=== PATIENT | female | born 1930 | race Caucasian/White ===

== ENCOUNTER 2016-12-04 09:12 | Observation (INO) | payer OTHER ==
--- NOTE | 2016-12-04 09:36 | CPEKG ---
Heart Rate: 65 RR Interval: 923 P-R Interval: 172 QRSD Interval: 116 QT Interval: 416 QTC Interval: 433 P [place]: 5 QRS [place]: 66 T Wave [place]: -21 EKG Severity - ABNORMAL ECG - EKG Impression: ATRIAL-PACED COMPLEXES EKG Impression: PROBABLE LEFT ATRIAL ABNORMALITY EKG Impression: NONSPECIFIC INTRAVENTRICULAR CONDUCTION DELAY EKG Impression: BORDERLINE ST DEPRESSION, ANTERIOR LEADS Electronically Signed By: Kay Mckeon 05-Dec-2016 16:30:31
[2016-12-04 10:34] LABS: ANION GAP 13 mEq/L (8-16); CARBON DIOXIDE 23 mEq/l (22-31); CHLORIDE 108 mEq/L (97-110); CREATININE 0.8 mg/dL (0.6-1.0); GLOMERULAR FILTRATION RATE > 60; GLUCOSE 109 mg/dL (70-100); POTASSIUM 3.9 mEq/L (3.5-5.2); SODIUM 144 mEq/L (134-144)
[2016-12-04 10:46] LABS: TROPONIN I < 0.012 ng/mL (0-0.034)
[2016-12-04 10:51] LABS: % IMMATURE GRANULYOCYTES 0.3 % (0.0-1.1); ABSOLUTE IMMATURE GRANULOCYTES 0.02 10^3/uL (0.00-0.10); ADD DIFF? NO; ADD MORPH? NO; ADD SCAN? NO; ATYPICAL LYMPHOCYTE FLAG 10 (0-99); FRAGMENT RBC FLAG 0 (0-99); HEMATOCRIT 41.2 % (38.0-47.0); LEFT SHIFT FLG 0 (0-99); LIPEMIA HEMOLYSIS FLAG 90 (0-99); MEAN CELL VOLUME 94.1 fL (81.5-99.8); MEAN PLATELET VOLUME 9.1 fL (8.7-11.7); PLATELET CLUMPS FLAG 0 (0-99); PLATELET COUNT 249 10^3/uL (150-400); RED BLOOD CELL COUNT 4.38 10^6/uL (4.18-5.33); RED CELL DISTRIBUTION WIDTH 13.1 % (11.5-15.2)
--- NOTE | 2016-12-04 11:44 | EDPHY ---
H & P Stated Complaint: l cp Time Seen by Provider: 12/04/16 11:37 HPI/ROS: CHIEF COMPLAINT: Chest pain. HISTORY OF PRESENT ILLNESS: The patient is an 85-year-old female who a history of pacemaker and ascending aortic aneurysm with repair who presents with chest achiness radiating to her left shoulder that began yesterday. Her left arm feels heavy and weak. It has been continuous since then and was worse this morning. She reports worsening fatigue and weakness over the last several days, although she does note that she has been fatigued and generally weak since her aneurysm repair. She also has a history of a stroke. She admits dry cough. No fever, chills, palpitations, vomiting, diarrhea, urinary complaints, headache, lightheadedness, rhinorrhea. Patient denies a known history of coronary artery disease. No history of pulmonary embolism or congestive heart failure. REVIEW OF SYSTEMS: Aside from elements discussed in the HPI, a comprehensive 10-point review of systems was reviewed and is negative. PAST MEDICAL HISTORY: Diabetes, hypercholesterolemia, hypertension, stable meningioma pulmonary nodules, TIA, scoliosis. SOCIAL HISTORY: Here with her [id number]. VITAL SIGNS: Reviewed by me GENERAL: Elderly, slightly overweight, pleasant, in no obvious distress. HEENT: Atraumatic. Eyes: No icterus, no injection. Mouth: moist mucous membranes. No erythema or lesions. Neck: supple with no adenopathy. LUNGS: Clear to auscultation bilaterally, no wheezes, rhonchi or rales. CARDIAC: Early systolic murmur. Regular rate and rhythm, no rubs or gallops. ABDOMEN: Soft, nontender, nondistended, bowel sounds normal. BACK: No CVA tenderness. EXTREMITIES: No trauma. No edema. Range of motion is normal throughout. NEURO: Alert and oriented, motor strength 5/5 in upper extremities. Sensation intact to light touch throughout. Cranial nerves 2-12 are intact. SKIN: Warm and dry, no rash. PSYCHIATRIC: Normal mentation, no agitation. Portions of this note were transcribed by a medical biller. I personally performed a history, physical exam, medical decision making, and confirmed accuracy of information the transcribed note. Source: Patient Exam Limitations: No limitations - Personal History Current Tetanus/Diphtheria Vaccine: Yes - Medical/Surgical History Hx Asthma: No Hx Chronic Respiratory Disease: No Hx Diabetes: No Hx Cardiac Disease: Yes Hx Renal Disease: No Hx Cirrhosis: No Hx Alcoholism: No Hx HIV/AIDS: No Hx Splenectomy or Spleen Trauma: No Other PMH: AAA w/ repair, HTN; coli; hemorids removed; pacemaker placement - Social History Smoking Status: Never smoked Constitutional: Initial Vital Signs Temperature (C) 36.7 C 12/04/16 09:21 Heart Rate 75 12/04/16 09:21 Respiratory Rate 18 12/04/16 09:21 Blood Pressure 159/104 H 12/04/16 09:21 O2 Sat (%) 94 12/04/16 09:21 O2 Delivery Mode Room Air Allergies/Adverse Reactions: No Known Allergies Allergy (Verified 12/04/16 09:20) Home Medications: Medication Instructions Recorded Aspirin [Aspirin 81mg (*)] 81 mg PO DAILY 03/06/14 Atorvastatin Calcium [Lipitor 10 10 mg PO DAILY 03/06/14 mg (*)] Cholecalciferol Vit D3 [Vitamin D3 1,000 units PO DAILY 03/06/14 (*)] Herbals/Supplements -Info Only 1 tab PO DAILY 03/06/14 [place]-3 Fatty Acids [Fish Oil 1000 1,000 mg PO DAILY18 12/04/16 mg (*)] amLODIPine BESYLATE [Norvasc 5 mg 5 mg PO DAILY 12/04/16 (*)] Medical Decision Making - Diagnostics EKG Interpretation: 12-LEAD EKG: Please see the full report in [facility] Master. My interpretation: Atrial paced complexes Imaging: X-ray chest was obtained. I viewed the images myself on the PACS system. My interpretation of the images is: no acute process. The radiologist interpretation is: no acute abnormality. I discussed the x-ray findings with the patient. ED Course/Re-evaluation: An IV was established and labs ordered. Chest x-ray and EKG obtained. No acute abnormalities in the patient's lab work. EKG is nonischemic. Given patient's age and past medical history including diabetes, hypertension, and hypercholesterolemia, feel patient should be admitted to the hospital for further cardiac evaluation. At this time I do not believe the patient needs evaluation for her history of an ascending aortic aneurysm. The patient will be admitted to Dr. Valdes's service patient was evaluated by TRENTON Lopes, in the emergency department. Differential Diagnosis: After history and physical examination, the differential for chest pain was considered, including but not limited to, myocardial ischemia, acute coronary syndrome, pulmonary embolus, chest wall pain, pleural inflammation and pulmonary infectious causes. - Data Points Laboratory Results: Laboratory Results 12/04/16 09:30 12/04/16 09:30 12/04/16 12/04/16 09:30 09:30 WBC 6.37 10^3/uL 10^3/uL (3.80-9.50) RBC 4.38 10^6/uL 10^6/uL (4.18-5.33) Hgb 14.0 g/dL g/dL (12.6-16.3) Hct 41.2 % % (38.0-47.0) MCV 94.1 fL fL (81.5-99.8) MCH 32.0 pg pg (27.9-34.1) MCHC 34.0 g/dL g/dL (32.4-36.7) RDW 13.1 % % (11.5-15.2) Plt Count 249 10^3/uL 10^3/uL (150-400) MPV 9.1 fL fL (8.7-11.7) Neut % (Auto) 63.1 % % (39.3-74.2) Lymph % (Auto) 25.4 % % (15.0-45.0) [place] % (Auto) 9.7 % % (4.5-13.0) Eos % (Auto) 0.9 % % (0.6-7.6) Baso % (Auto) 0.6 % % (0.3-1.7) Nucleat RBC Rel Count 0.0 % % (0.0-0.2) Absolute Neuts (auto) 4.01 10^3/uL 10^3/uL (1.70-6.50) Absolute Lymphs (auto) 1.62 10^3/uL 10^3/uL (1.00-3.00) Absolute Monos (auto) 0.62 10^3/uL 10^3/uL (0.30-0.80) Absolute Eos (auto) 0.06 10^3/uL 10^3/uL (0.03-0.40) Absolute Basos (auto) 0.04 10^3/uL 10^3/uL (0.02-0.10) Absolute Nucleated RBC 0.00 10^3/uL 10^3/uL (0-0.01) Immature Gran % 0.3 % % (0.0-1.1) Immature Gran # 0.02 10^3/uL 10^3/uL (0.00-0.10) Sodium 144 mEq/L mEq/L (134-144) Potassium 3.9 mEq/L mEq/L (3.5-5.2) Chloride 108 mEq/L mEq/L (97-110) Carbon Dioxide 23 mEq/l mEq/l (22-31) Anion Gap 13 mEq/L mEq/L (8-16) BUN 11 mg/dL mg/dL (7-23) Creatinine 0.8 mg/dL mg/dL (0.6-1.0) Estimated GFR > 60 Glucose 109 mg/dL H mg/dL (70-100) Calcium 10.0 mg/dL mg/dL (8.5-10.4) Troponin I < 0.012 ng/mL ng/mL (0-0.034) Departure - Departure Disposition: [facility] Inpatient Acute Clinical Impression: Chest pain Qualifiers: Chest pain type: unspecified Qualified Code(s): R07.9 - Chest pain, unspecified Condition: Fair Report Scribed for: Kay Mckeon Report Scribed by: Mateo Presley Date of Report: 12/04/16 Time of Report: 11:44
[2016-12-04] MEDS ORDERED: LORazepam 0.5 MG TAB PO PRN (13:47)
[2016-12-04] MEDS ORDERED: ONDANSETRON 4 MG/2 ML VIAL IVP PRN (13:47)
[2016-12-04] MEDS ORDERED: ONDANSETRON DISINTEGRATING 4 MG TAB PO PRN (13:47)
[2016-12-04] MEDS ORDERED: ACETAMINOPHEN 325 MG TAB PO PRN (13:47)
[2016-12-04] MEDS ORDERED: diphenhydrAMINE 25 MG CAP PO PRN (13:47)
--- NOTE | 2016-12-04 14:43 | GHP ---
DATE OF ADMISSION: 12/04/2016 REASON FOR ADMISSION: Chest pain. HISTORY OF PRESENT ILLNESS: The patient is an 85-year-old female, who had profound fatigue yesterda y, she states she had some intermittent and building left sided chest pain/pressure, which radiated to her left shoulder and left arm. She had intermittent symptoms last night that began to scare her . Her symptoms persisted this morning and she eventually came to the ER for further evaluation. Sh jax denies shortness of breath. She denies nausea or vomiting. She denies any diaphoresis. She feel s her weakness is a little less profound now than it was yesterday. She has had some waxing and wan ing weakness over the past several weeks to months, and some complex symptoms, historically dating b ack multiple years. She has no sense of rhythm irregularity. No other gross acute GI distress. No recent change in leg swelling or edema. Stress level remains to be moderately elevated. PAST MEDICAL HISTORY: Hypertension, sick sinus syndrome, now with dual chamber pacemaker. 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 ALLERGIES: Lisinopril causes a cough. REGULAR MEDICATIONS: Vitamin D 2000 IU daily, fish oil 1 capsule daily, Co-Q10 100 mg daily, Norvas c 5 mg daily, Lipitor 10 mg 3 days per week, aspirin 81 mg daily. SURGICAL HISTORY: Hemorrhoidectomy in 1978, cholecystectomy in 1984, aortic aneurysm repair, upper chest, Dr. Husain, with Dacron sheath 2007, repair of hematoma from an aforementioned surgery , same year hospitalization surgery, TIA hospitalization 2012. SOCIAL HISTORY: Nonsmoker, does not consume alcohol on a regular basis. She has good support from her son and [id number], who live locally. FAMILY HISTORY: Father suffered from high blood pressure and gout. Son at age 50, aneurys m in head. Mother lived to her 80s, had heart disease, heart failure, hypertension. She has a sibl ing with gout, another one who from heart disease. Reported aneurysm in a sibling at age 53. SUCCESSFUL PREGNANCIES: One. REVIEW OF SYSTEMS: GENERAL: No fever, aches or chills. She does admit to profound weakness. HEAD : Intermittent headache, nothing acute or unusual. No acute visual changes. No changes with heari ng or any of her sensory modalities. No difficulty with speech. No acute neck pain or suddenly red uced range of motion. She denies cough, wheeze, shortness of breath or any difficulty breathing. C hest: See HPI. GI: See HPI. She has had some battles with constipation, but these are well managed. UR INARY: No acute symptoms. MUSCULOSKELETAL: Radiating pain to left shoulder and left arm. Otherwise, no acute findings. Chronic low back pain is otherwise stable. PHYSICAL EXAM: VITAL SIGNS: Blood pressure ranging from 127/84, to a maximum of 159/104, saturatio n 97% on room air. Temperature 37.4, heart rate 60s to 70s. This appears to be sinus rhythm. She has a dual-chamber pacemaker, but does not appear to be currently active given her current rhythm. GENERAL: Comfortable female, no evidence of recent trauma. Good color, alert. [id number] is p resent. HEENT: Symmetric pupils. Oropharynx mildly dry. NECK: Without masses. No lymphadenopathy. No carotid bruits. Neck range of motion is reasonable for age . LUNGS: No crackles, wheeze or congestion. Normal diaphragmatic excursion. HEART: Regular rate and rhythm, 1-2/6 systolic murmur. Stable fin ding. EKG sinus rhythm, without evidence of AV pacer activity currently. No clear ST-segment eleva tion or depression. ABDOMEN: Positive bowel sounds, obese, soft, nontender, nondistended. No guar ding, rebound or masses. SKIN: Warm, dry, intact. No evidence of ecchymosis or diaphoresis. JEAN MARIE [facility] AND PELVIC: Deferred. Joints without acute erythema, warmth or swelling. No tenderness about h er shoulder on gentle palpation. LABORATORY DATA: Initial blood work: CBC is unremarkable. Initial troponin is less than 0.012. Electrolytes are balanced, glucose 109. ASSESSMENT: 1. Chest pain. She has a fairly convincing anginal story with profound fatigue yesterday, chest pr essure/heaviness with radiation of pain to her left shoulder and left arm last night, and more so th is morning. We will admit. We will follow serial enzymes. We will check EKGs at 6 and in the morn ing. We will check an echocardiogram given her prior heart surgery, her murmur and we will obtain c ardiology consultation with Dr. Middleton or his group. She has admitted strong reservations against a stress test due to feeling weak after her last one for several days. She may need to consider pr oceeding to angiogram based on her predilection/fear of the stress test itself. 2. Hypertension. Follow numbers closely. We will await for reconciliation of medicine. She may n eed to resume a low dose of carvedilol for cardio activity. 3. Low back pain. Stable. 4. Chronic constipation, stable. 5. Diabetes, most recent A1c is hovering around 6.0. We will continue with diet and exercise manag chris. /[id number]/MODL
[2016-12-04 18:54] LABS: TROPONIN I < 0.012 ng/mL (0-0.034)
[2016-12-04 19:17] LABS: CREATINE KINASE-MB FRACTION 3.51 ng/mL (0-3.19)
[2016-12-04 19:25] LABS: CK-MB INTERPRETATION NEGATIVE (NEGATIVE)
[2016-12-05 05:37] LABS: ALANINE AMINOTRANSFERASE 39 IU/L (9-52); ALBUMIN 3.3 g/dL (3.5-5.0); ALKALINE PHOSPHATASE 53 IU/L (38-126); ANION GAP 9 mEq/L (8-16); ASPARTATE AMINOTRANSFERASE 29 IU/L (14-46); BILIRUBIN,TOTAL 1.2 mg/dL (0.1-1.4); CALCIUM 9.3 mg/dL (8.5-10.4); CARBON DIOXIDE 25 mEq/l (22-31); CHLORIDE 108 mEq/L (97-110); CREATININE 0.8 mg/dL (0.6-1.0); GLOMERULAR FILTRATION RATE > 60; GLUCOSE 89 mg/dL (70-100); POTASSIUM 4.1 mEq/L (3.5-5.2); SODIUM 142 mEq/L (134-144); TOTAL PROTEIN 6.1 g/dL (6.3-8.2)
[2016-12-05 05:47] LABS: TROPONIN I < 0.012 ng/mL (0-0.034)
[2016-12-05 05:50] LABS: CREATINE KINASE-MB FRACTION 3.32 ng/mL (0-3.19)
[2016-12-05 06:01] LABS: CK-MB INTERPRETATION NEGATIVE (NEGATIVE)
[2016-12-05] MEDS ORDERED: CARVEDILOL 3.125 MG TAB PO SCH (08:00)
[2016-12-05] MEDS: ATORVASTATIN CALCIUM 10 MG TAB PO SCH (08:13)
[2016-12-05] MEDS: CHOLECALCIFEROL VIT D3 1,000 UNITS TAB PO SCH (08:13)
[2016-12-05] MEDS: amLODIPine BESYLATE 5 MG TAB PO SCH (08:13)
[2016-12-05] MEDS: ASPIRIN 81 MG CHEWABLE TAB PO SCH (08:13)
--- NOTE | 2016-12-05 08:28 | SOAPPROG ---
[facility] Progress Note Assessment/Plan: Assessment: Plan: 12/05/16 08:26 CP--good story for angina with profound fatigue, then chest pressure and chest pain radiating to left shoulder and arm yesterday. Known mild DM2, HTN and high cholesterol. Patient may likely refuse a stress test, she may be more amenable to an angiogram. Breakfast being held. Cardiology consult pending. HTN--reasonable control DM--nursing home control has been excellent with A1C's around 6.0 Subjective: The patient feels ok. Some pressure when she lies down. Echo just performed. No new symptoms, awaiting cardiology input. She would prefer angiogram over stress test due to prior negative experience with stress tests. Objective: Vital Signs Temp Pulse Resp BP Pulse Ox 36.3 C 65 20 125/67 H 97 12/05/16 03:50 12/05/16 03:50 12/05/16 03:50 12/05/16 03:50 12/05/16 03:50 Laboratory Results 12/05/16 04:37 12/04/16 12/05/16 12/06/16 05:59 05:59 05:59 Intake Total 350 Output Total 300 Balance 50 Gen: NAD, bright, good color Lungs: CTAB Heart: RRR 2/6 DREW stabel Echo pending--poss LV wall motion abnormalities Abd +bs soft LE's no edema BP ok patient refused adding coreg Troponin neg x3 AM ekg pending ICD10 Worksheet Patient Problems: Problems Problem Status Onset Chest pain Acute Sick sinus syndrome Acute
--- NOTE | 2016-12-05 08:41 | CPEKG ---
Heart Rate: 68 RR Interval: 882 P-R Interval: 264 QRSD Interval: 108 QT Interval: 412 QTC Interval: 439 P [place]: -12 QRS [place]: 73 T Wave [place]: -4 EKG Severity - ABNORMAL ECG - EKG Impression: SINUS RHYTHM EKG Impression: FIRST DEGREE AV BLOCK EKG Impression: PROBABLE LEFT ATRIAL ABNORMALITY Electronically Signed By: Kay Mckeon 05-Dec-2016 16:27:57
[2016-12-05] MEDS ORDERED: ENOXAPARIN 30 MG/0.3 ML SYR SC SCH (09:00)
[2016-12-05] MEDS ORDERED: Herbals/Supplements -Info Only PO SCH (09:00)
--- NOTE | 2016-12-05 09:20 | PDCARCONS ---
Cardiology Consult Reason for Consult: chest pain, history of coronary disease Chief Complaint: left-sided chest discomfort that radiated into her left arm and shoulder, dizziness, weakness Requesting Physician: Dr. Valdes History of Present Illness: HPI: Sharon is an 85 year old female with a history of coronary artery disease via cardiac catheterization performed in 2006 (non-flow limiting coronary artery disease as of this time), ascending aortic aneurysm s/p repair in October 2007, dyslipidemia, hypertension, DM II and peripheral vascular disease. She presented to the emergency department yesterday with left-sided, resting chest discomfort that radiated into her left arm consistent with CCS IV angina. She denies shortness of breath, palpitations or other cardiac symptoms during this episode. She is feeling better today, although she reports she is feeling "weak." Troponin's were negative x 3. Plan/Assessment: I discussed the risk/benefit of cardiac catheterization vs. nuclear stress test for objective assessment of the patient's coronary circulation given her history of coronary disease, chest pain and abnormal resting EKG. She would like to proceed with a more aggressive invasive approach (specifically, she has refused a nuclear stress test). I have explained the risks, expected benefits and potential complications of this course of action with the patient and she wishes to proceed as planned. Some potential benefits include angina relief, definitive assessment of coronary anatomy and LV function. Complications have been described as , permanent and disabling stroke, heart attack, abnormal heart rhythm, bleeding and damage to blood vessels resulting in tissue or limb loss. The patient is npo as of this morning. History Information - Allergies/Home Medication List Allergies/Adverse Reactions: No Known Allergies Allergy (Verified 12/04/16 09:20) Home Medications: Aspirin [Aspirin 81mg (*)] 81 mg PO DAILY 03/06/14 [Last Taken 12/04/16] Atorvastatin Calcium [Lipitor 10 mg (*)] 10 mg PO DAILY 03/06/14 [Last Taken 12/16] Cholecalciferol Vit D3 [Vitamin D3 (*)] 1,000 units PO DAILY 03/06/14 [Last Taken 12/04/16] Herbals/Supplements -Info Only 1 tab PO DAILY 03/06/14 [Last Taken 03/05/14 18: 00] [place]-3 Fatty Acids [Fish Oil 1000 mg (*)] 1,000 mg PO DAILY18 12/04/16 [Last Taken 12/03/16] amLODIPine BESYLATE [Norvasc 5 mg (*)] 5 mg PO DAILY 12/04/16 [Last Taken ] I have personally reviewed and updated: family history, medical history, social history, surgical history - Past Medical History coronary artery disease, diabetes type 2, hypertension, hyperlipidemia, peripheral artery disease - Family History Positive for: CAD - Social History Smoking Status: Never smoked Cardiac History - Cardiac History Past Cardiac History: CAD, OTHER Cardiac Risk Factors: hypertension (>140/90), lipidemia, diabetes mellitus, family history of premature CAD, age > 65 Timing/Duration: Days Severity: moderate Severity Scale: 5 Location: substernal Activities at Onset: rest ISABEL Risk Evaluation age greater or equal to 65: yes greater or equal to 3 CAD risk factors: yes known CAD(stenosis greater or eqaul to 50%): no ASA use in past 7 days: yes severe angina(greater or equal to 2 episodes in 24hrs): no EKG ST changes greater or equal to 0.5mm: no positive cardiac marker: no Total Score: 3 ISABEL Score: 13.2% risk Physical Exam Temp Pulse Resp BP Pulse Ox 36.5 C 78 18 126/80 H 91 L 12/05/16 08:29 12/05/16 08:29 12/05/16 08:29 12/05/16 08:29 12/05/16 08:29 Constitutional: no apparent distress Eyes: anicteric sclera Cardiovascular: regular rate and rhythym, systolic murmur Gastrointestinal: normoactive bowel sounds Skin: warm, normal color Musculoskeletal: full muscle strength Psychiatric: interacting appropriately, not anxious Lymph, Heme, Immunologic: no cervical LAD Lab and Imaging 12/04/16 09:30 12/05/16 04:37 WBC 6.37 10^3/uL (3.80-9.50) 12/04/16 09:30 RBC 4.38 10^6/uL (4.18-5.33) 12/04/16 09:30 Hgb 14.0 g/dL (12.6-16.3) 12/04/16 09:30 Hct 41.2 % (38.0-47.0) 12/04/16 09:30 MCV 94.1 fL (81.5-99.8) 12/04/16 09:30 MCH 32.0 pg (27.9-34.1) 12/04/16 09:30 MCHC 34.0 g/dL (32.4-36.7) 12/04/16 09:30 RDW 13.1 % (11.5-15.2) 12/04/16 09:30 Plt Count 249 10^3/uL (150-400) 12/04/16 09:30 MPV 9.1 fL (8.7-11.7) 12/04/16 09:30 Neut % (Auto) 63.1 % (39.3-74.2) 12/04/16 09:30 Lymph % (Auto) 25.4 % (15.0-45.0) 12/04/16 09:30 [place] % (Auto) 9.7 % (4.5-13.0) 12/04/16 09:30 Eos % (Auto) 0.9 % (0.6-7.6) 12/04/16 09:30 Baso % (Auto) 0.6 % (0.3-1.7) 12/04/16 09:30 Nucleat RBC Rel Count 0.0 % (0.0-0.2) 12/04/16 09:30 Absolute Neuts (auto) 4.01 10^3/uL (1.70-6.50) 12/04/16 09:30 Absolute Lymphs (auto) 1.62 10^3/uL (1.00-3.00) 12/04/16 09:30 Absolute Monos (auto) 0.62 10^3/uL (0.30-0.80) 12/04/16 09:30 Absolute Eos (auto) 0.06 10^3/uL (0.03-0.40) 12/04/16 09:30 Absolute Basos (auto) 0.04 10^3/uL (0.02-0.10) 12/04/16 09:30 Absolute Nucleated RBC 0.00 10^3/uL (0-0.01) 12/04/16 09:30 Immature Gran % 0.3 % (0.0-1.1) 12/04/16 09:30 Immature Gran # 0.02 10^3/uL (0.00-0.10) 12/04/16 09:30 Sodium 142 mEq/L (134-144) 12/05/16 04:37 Potassium 4.1 mEq/L (3.5-5.2) 12/05/16 04:37 Chloride 108 mEq/L (97-110) 12/05/16 04:37 Carbon Dioxide 25 mEq/l (22-31) 12/05/16 04:37 Anion Gap 9 mEq/L (8-16) 12/05/16 04:37 BUN 15 mg/dL (7-23) 12/05/16 04:37 Creatinine 0.8 mg/dL (0.6-1.0) 12/05/16 04:37 Estimated GFR > 60 12/05/16 04:37 Glucose 89 mg/dL (70-100) 12/05/16 04:37 Calcium 9.3 mg/dL (8.5-10.4) 12/05/16 04:37 Magnesium 2.0 mg/dL (1.6-2.3) 12/05/16 04:37 Total Bilirubin 1.2 mg/dL (0.1-1.4) 12/05/16 04:37 AST 29 IU/L (14-46) 12/05/16 04:37 ALT 39 IU/L (9-52) 12/05/16 04:37 Alkaline Phosphatase 53 IU/L (38-126) 12/05/16 04:37 Creatine Kinase 173 IU/L (0-156) H 12/05/16 04:37 CK-MB (CK-2) Fraction 3.32 ng/mL (0-3.19) H 12/05/16 04:37 CK-MB (CK-2) % 1.9 % (0.0-4.0) 12/05/16 04:37 Creatine Kinase Interp NEGATIVE (NEGATIVE) 12/05/16 04:37 Troponin I < 0.012 ng/mL (0-0.034) 12/05/16 04:37 Total Protein 6.1 g/dL (6.3-8.2) L 12/05/16 04:37 Albumin 3.3 g/dL (3.5-5.0) L 12/05/16 04:37 EKG Interpretation: Positive for: normal sinsus rhythm, other (non-specific ST T wave abnormalities, non-specific IVCD, 0.[address] depression v3 v4 v5, abnormal EKG)
--- NOTE | 2016-12-05 11:19 | ECHO ---
[id number] + + [address] : : [place] [address] : : [phone] + + Adult Echocardiographic Report + -----+ :Name: Markel VENTURAkarrie Date: 12/05/2016 08:22 AM : : Hospital Admission Number: [id number] Location : 212: :: 1930 Gender: Female Height: 66 in : :Age: 85 yrs Race: WH,White Weight: 190 lb : :Reason For Study: Eval LV Fx : : BSA: 2.0 meters2 : :History: Chest Pain, History of ascending aortic arch : :aneurysm repair graft. Pacemaker : + -----+ MMode/2D Measurements \T\ Calculations IVSd: 1.4 cm LVIDd: 3.3 cm FS: 22.4 % Ao root diam: LVPWd: 1.1 cm LVIDs: 2.6 cm EDV(Teich): 44.1 ml3.5 cm ESV(Teich): 23.7 mlACS: 1.5 cm EF(Teich): 46.3 % LVOT diam: 2.1 cm LVLd ap4: 6.4 cm SV(MOD-sp4): LVOT area: EDV(MOD-sp4): 18.0 ml 3.5 cm2 42.0 ml LVLs ap4: 6.4 cm ESV(MOD-sp4): 24.0 ml EF(MOD-sp4): 42.9 % Normal Measurement Values: + + :LVIDd (3.5-5.7cm) IVSd (0.6-1.1cm) LVPWd (0.6-1.1cm) Aortic Root (2.0-3.7cm)Left Atrium (1.5-4.0cm): :LV Vol(d) (76-115ml) LV Vol(s) (29-48ml) Ejec Fraction (50-65%)PV Krishna (0.6- 1.2m/s) TV Krishna (0.4-1.0m/s) : :MV E Krishna (0.8-1.0m/s)MV A Krishna (0.3-1.0m/s)LVOT Krishna (0.7-1.2m/s) Asc Ao Krishna ( 0.9-1.8m/s) : + + Doppler Measurements \T\ Calculations MV E max krishna: Ao V2 max: LV V1 max: SV(LVOT): 67.6 cm/sec 169.7 cm/sec 112.0 cm/sec 88.9 ml MV A max krishna: Ao max P.5 mmHg LV V1 max P.7 cm/sec Ao mean P.8 mmHg 5.0 mmHg MV E/A: 0.69 Ao V2 mean: LV V1 mean P.6 cm/sec 3.1 mmHg Ao V2 VTI: 35.4 cm LV V1 mean: HENRIQUE(I,D): 2.5 cm2 81.0 cm/sec LV V1 VTI: 25.7 cm HENRIQUE(V,D): 2.3 cm2 PA V2 max: 90.9 cm/sec PA max P.3 mmHg Left Ventricle The left ventricle is normal in size. There is mild concentric left ventricular hypertrophy. Ejection Fraction = 55-60%. There is basilar inferolateral hypokinesis. There is Doppler evidence for diastolic dysfunction. Right Ventricle The right ventricle is normal in size and function. There is a pacemaker lead in the right ventricle. Atria The left atrial size is normal. Right atrial size is normal. Mitral Valve There is mild mitral annular calcification. There is no mitral valve stenosis. There is trace to mild mitral regurgitation. Tricuspid Valve Normal tricuspid valve. There is trace to mild tricuspid regurgitation. Right ventricular systolic pressure is normal. Aortic Valve Mild Aortic Valve Calcification. There is no aortic stenosis. There is no aortic insufficiency. Pulmonic Valve The pulmonic valve is normal in structure and function. There is no pulmonic valvular regurgitation. Great Vessels There is a ascending aorta graft. Pericardium/Pleural There is no pericardial effusion. Conclusion A complete two-dimensional transthoracic echocardiogram was performed (2D, M-mode, Doppler and color flow Doppler). Normal LV size and systolic function. There is basilar inferolateral hypokinesis. Ejection Fraction = 55-60%. There is mild concentric left ventricular hypertrophy. There is Doppler evidence for diastolic dysfunction. The right ventricle is normal in size and function. There is a pacemaker lead in the right ventricle. The left atrial size is normal. There is mild mitral annular calcification. There is trace to mild mitral regurgitation. There is trace to mild tricuspid regurgitation. Right ventricular systolic pressure is normal. Mild Aortic Valve Calcification There is no aortic stenosis. There is a ascending aorta graft. There is no pericardial effusion. Final Reading Physician: Robert Carnes signed on 12/05/2016 11:18 AM Ordering Physician: Bharat Meadows Performed By: Bryan Martin, WILLARDCS
[2016-12-05 12:00] LABS: INR 1.13 (0.83-1.16); PROTIME(PATIENT) 14.4 SEC (12.0-15.0)
[2016-12-05] MEDS ORDERED: LIDOCAINE 1% 30 ML SDV ONE ×2 (12:18→12:23)
[2016-12-05] MEDS ORDERED: MIDAZOLAM 2 MG/2 ML VIAL ONE (12:19)
[2016-12-05] MEDS ORDERED: fentaNYL 100 MCG/2 ML INJ ONE (12:19)
[2016-12-05] MEDS ORDERED: IOPAMIDOL (ISOVUE-370) 150 ML BTL IV ONE (12:19)
[2016-12-05] MEDS ORDERED: diphenhydrAMINE 25 MG CAP PO ONE (12:49)
[2016-12-05] MEDS ORDERED: ASPIRIN EC 325 MG TAB PO ONE (12:49)
[2016-12-05] MEDS ORDERED: DIAZEPAM 5 MG TAB PO ONE (12:49)
[2016-12-05] MEDS ORDERED: NS 1,000 ML IV ONE (12:49)
[2016-12-05] MEDS ORDERED: FAMOTIDINE 20 MG TAB PO ONE (12:49)
--- NOTE | 2016-12-05 13:45 | PDDXCAT ---
Diagnostic Cath Note - . Date: 12/05/16 Intervention: None *Procedure Access: right femoral artery Procedure: 1. selective coronary angiography 2. left heart catheterization 3. left ventriculogram 4. thoracic aortogram Indication: History of [place] vessel non-flow limiting coronary artery disease via cardiac catheterization in 2006, new onset CCS IV angina, declined nuclear stress test. *Materials Left Heart Cath size: 6F Left Heart Cath materials: JL3.5, JR4.0, pigtail *Findings-Selective Coronary Angiography LM: The left main is ~5 mm in size and bifurcates into an LAD and circumflex system. No flow-limiting disease is identified. LAD: The proximal LAD is ~3.5 mm in size. There is a 20% "napkin ring" stenosis of the mid LAD with ISABEL III flow throughout. LCX: The left circumflex is ~3 mm in size and a co-dominant system. There is no evidence of flow-limiting disease with ISABEL III flow throughout. RCA: The right coronary artery is co-dominant and ~2.5 mm in size. There are luminal irregularities with maximal luminal stenosis of 20% with ISABEL III flow throughout. *Findings-Left Heart Catheterization EDP: 13 mmHg LVEF: 60% Wall motion analysis: No evidence of wall motion abnormalities on left ventriculogram. Thoracic aortogram: There is an infolding of the thoracic aorta at the site of the anastomosis of the graft and [place] vessel. *Summary Complications: None Estimated blood loss: <50ml Closure method: Angioseal Assessment/Conclusion: 1. Non-flow limiting, [place] vessel coronary artery disease that has not significantly progressed when compared to a prior study performed in 2006. There is maximal luminal stenosis of 20% in the mid LAD and 20% in the RCA with ISABEL III flow throughout a co-dominant right coronary system. 2. No wall motion abnormalities with normal ejection fraction at 60% and LVEDP measured at 13 mmHg 3. There is an infolding of the thoracic aorta at the site of the anastomosis of the graft and [place] vessel. There is no gradient upon pullback across this infolding, so it is not of hemodynamic consequence. A cause for the patient's resting chest discomfort and left-sided arm discomfort is not identified on the basis of this study and is unlikely to be ischemic. Patient Problems: Problems Problem Status Onset Chest pain Acute Sick sinus syndrome Acute
[2016-12-05 13:52] LABS: CHOLESTEROL 159 mg/dL (140-220); CHOLESTEROL/HDL RATIO 2.79 RATIO (1.00-4.44); HIGH DENSITY LIPOPROTEIN 57 mg/dL (40-85); LDL/HDL RATIO 1.54 RATIO (1.00-3.22); LOW DENSITY LIPOPROTEIN 88 mg/dL (80-100); NON-HIGH DENSITY LIPOPROTEIN 102 mg/dL (90-129); TRIGLYCERIDE 74 mg/dL (35-135); VERY LOW DENSITY LIPOPROTEINS 14 mg/dL (8-25)
[2016-12-05] MEDS ORDERED: ATROPINE SULFATE 1 MG/10 ML SYR ONE (13:57)
[2016-12-05] MEDS ORDERED: NITROGLYCERIN 0.4 MG BTL SL PRN (14:30)
[2016-12-05] MEDS ORDERED: ATROPINE SULFATE 1 MG/10 ML SYR IVP PRN (14:30)
[2016-12-05] MEDS ORDERED: OMEGA-3 FATTY ACIDS 1,000 MG CAP PO SCH (18:00)
[2016-12-06 07:45] VITALS: BP 139/80; PULSE 86; RESP 19; TEMP 97.7; O2SAT 96
--- NOTE | 2016-12-06 09:39 | SOAPPROG ---
SOAP Progress Note Assessment/Plan: Assessment: 85 yo female admitted w/ cp x 2 days, s/p cath/angio w/ non flow ltg ds, aortic graft ok -cp resolved, still w/ mild fatigue but overall much better. Will be able to d/ c home later today w/ dtr in law. Appreciate input of cardiology -htn - cont current regimen -constipation - will offer choice of bowel regimen -DM - good control -dispo - d/c home today Plan: 12/06/16 09:36 Subjective: Doing much better, very happy about results of angio, feeling reassured Objective: Vital Signs Temp Pulse Resp BP Pulse Ox 36.5 C 86 19 139/80 H 96 12/06/16 07:40 12/06/16 07:40 12/06/16 07:40 12/06/16 07:40 12/06/16 07:40 Laboratory Results 12/05/16 04:37 12/05/16 12/06/16 12/07/16 05:59 05:59 05:59 Intake Total 350 980 Output Total 300 0 Balance 50 980 PT 14.4 SEC (12.0-15.0) 12/05/16 11:25 INR 1.13 (0.83-1.16) 12/05/16 11:25 Gen: pleasant female, supine, a & O x 3 Chest: cta b CV: rrr 2-3/6 michael Abd soft nt nd Ext no edema, R groin from cath looks good no hematoma - Pending Discharge Pending Discharge Within 24 Hours: Yes Pending Discharge Date: 12/07/16 Pending Discharge Time: 11:00 ICD10 Worksheet Patient Problems: Problems Problem Status Onset Sick sinus syndrome Acute Chest pain Acute
[2016-12-06] MEDS: CHOLECALCIFEROL VIT D3 1,000 UNITS TAB PO SCH (09:56)
[2016-12-06] MEDS: ATORVASTATIN CALCIUM 10 MG TAB PO SCH (09:56)
[2016-12-06] MEDS: ASPIRIN 81 MG CHEWABLE TAB PO SCH (09:56)
[2016-12-06] MEDS: amLODIPine BESYLATE 5 MG TAB PO SCH (09:56)
[2016-12-06] MEDS ORDERED: LACTULOSE 20 GM/30 ML UDCUP PO PRN (10:01)
[2016-12-06] MEDS ORDERED: POLYETHYLENE GLYCOL 3350 17 GM PKT PO PRN (10:01)
[2016-12-06] MEDS ORDERED: MAGNESIUM HYDROXIDE 30 ML UDCUP PO PRN (10:01)
[2016-12-06] MEDS ORDERED: BISACODYL 10 MG SUPP PR PRN (10:01)
--- NOTE | 2016-12-06 10:30 | GDS ---
SUMMARY: The patient is an 85-year-old female with known coronary atherosclerosis, history of an ao rtic graft, sick sinus syndrome with a dual-chamber pacemaker, borderline diabetes and hypertension, who presented to the ER on 12/04/2016 with approximately 2 days of left-sided chest pressure and fa tigue, which radiated to her left shoulder and her arm, with a sense of fatigue and progressive weak ness. Given her history and the concerning symptoms, she was admitted for possible angina for asses sment of serial enzymes and consultation with Cardiology. She had borderline CK MB. Troponins nega tive. During her hospitalization, she received a consultation by Dr. Jens Gallagher, who felt given t he likelihood of this being ischemic, plan was to take her to the coronary cardiac cath lab manager for angiogram. In addition, she specifically refused nuclear stress test. She was found to have non-flow limiting disease with ISABEL-3 flow throughout, and graft appeared in place with an enfolding of the thoracic a jw at the site of the anastomosis of the graft and the alutiiq vessel, with a normal ejection fract ure of 60%. The patient tolerated the procedure well. She still had some fatigue after procedure, spent the night last night, and is doing much better this morning. The plan will be for her to be discharged home when her [id number] can pick her up a little bit later today. She will have followup with her PCP, Bharat Meadows, within a week. She will call if any questions or concerns in the interim. She will resume all of her regular medications, including amlodipine 5 mg p.o. daily, aspirin 81 mg p.o. daily, atorvastatin 10 mg p.o. daily, vitamin D and fish oil. /[id number]/MODL
--- NOTE | 2016-12-06 12:34 | PDCARPN ---
Cardiology Progress Note Chief Complaint: Chest Pain Assessment/Plan: Assessment: Chest pain on admit to hospital. She has no past history of CAD. Further evaluation with cardiac angiogram by Jens Gallagher MD yesterday finding no flow limiting disease. Her Left Main was normal. Mid-LAD had a "napkin-ring" stenosis 20%. RCA co-dominate vessel with 20% lesion. Chest pain likely non-cardiac. Groin site nontender, no ecchymosis or redness. Advised she can take a shower, avoid tub bath for one week. No heavy lifting, pushing, pulling for one week. Should groin site bleed, she was instructed to hold firm pressure to site and go to ER. She tends to be constipated, and is instructed to maintain good bowel regimen in effort to avoid bearing down pressure to right vessel site. Aortic grafting previously. Thoracic Aortogram showed no significant abnormalities. HTN adequately managed on current medical therapy. DM monitored and managed by her PCP. Plan: OK for discharge today from [facility] point. 12/06/16 12:35 Subjective: I have no chest pain today, and feel ready to go home. Reviewed/Discussed With: hospitalist, multidisciplinary team Time Spent With Patient: 30 minutes. Objective: Vital Signs (8 Hrs) Temp Pulse Resp BP Pulse Ox 12/06/16 07:40 36.5 C 86 19 139/80 H 96 Intake/Output (24 Hrs) 12/05/16 12/06/16 12/07/16 05:59 05:59 05:59 Intake Total 350 980 Output Total 300 0 Balance 50 980 Intake: Oral (ml) 350 980 Output: Urine (ml) 300 0 Toilet 300 0 Other: Weight 88.3 kg Intake Quantity Yes Sufficient Number of Voids Toilet 2 Number of Stools Toilet 0 Result Diagrams: 12/04/16 09:30 12/05/16 04:37 Cardiac Labs: Cardiac Lab Results (72 Hrs) 12/05/16 12/04/16 04:37 18:13 CK-MB (CK-2) Fraction 3.32 H 3.51 H Troponin I < 0.012 < 0.012 - Physical Exam Constitutional: WDWN, no apparent distress Cardiovascular: regular rate and rhythm, no murmurs, no rubs, no gallops Respiratory: clear to auscultate bilat, no crackles, no wheezes Skin: no rashes, warm, no edema Neurologic: AAOx3 Psychiatric: cooperative, interactive ICD10 Worksheet Patient Problems: Problems Problem Status Onset Chest pain Acute Sick sinus syndrome Acute
[2016-12-06] MEDS ORDERED: SENNOSIDES/DOCUSATE SODIUM TAB PO SCH (21:00)
== END 2016-12-06 13:19 | disposition home or self-care (01) ==
LOC: F2W 15:37
PROVIDERS: ADMIT Internal Medicine; ATTEND Internal Medicine
PROC: B2151ZZ Fluoroscopy of Left Heart using Low Osmolar Contrast (ICD-10-PCS; principal; 2016-12-04)
PROC: B310ZZZ Fluoroscopy of Thoracic Aorta (ICD-10-PCS; principal; 2016-12-04)
PROC: B2111ZZ Fluoroscopy of Multiple Coronary Arteries using Low Osmolar Contrast (ICD-10-PCS; principal; 2016-12-04)
PROC: 4A023N7 Measurement of Cardiac Sampling and Pressure, Left Heart, Percutaneous Approach (ICD-10-PCS; principal; 2016-12-04)
DX: R07.9 Chest pain, unspecified (principal); I25.10 Atherosclerotic heart disease of native coronary artery without angina pectoris; I49.5 Sick sinus syndrome; Z95.828 Presence of other vascular implants and grafts; R53.83 Other fatigue; M54.5 Low back pain; K59.00 Constipation, unspecified; I10 Essential (primary) hypertension; E78.5 Hyperlipidemia, unspecified; E11.9 Type 2 diabetes mellitus without complications; I73.9 Peripheral vascular disease, unspecified; R91.1 Solitary pulmonary nodule; M41.9 Scoliosis, unspecified; Z82.49 Family history of ischemic heart disease and other diseases of the circulatory system; Z86.73 Personal history of transient ischemic attack (TIA), and cerebral infarction without residual deficits; Z95.0 Presence of cardiac pacemaker; Z66 Do not resuscitate
CPT/HCPCS: 71020; 93005; 93306; 93458; 93567; 99285; G0378; J1644; J1650; J2250; J3010; Q9967; J0461

== ENCOUNTER → 2018-04-27 | Outpatient (CLI) | payer OTHER | LOC: CIMAGING 13:19 | PROVIDERS: ATTEND Physician Assistant | DX: S09.90XD Unspecified injury of head, subsequent encounter (principal); W19.XXXD Unspecified fall, subsequent encounter | CPT/HCPCS: 70450-PO ==

== ENCOUNTER 2018-10-02 11:12 | Emergency (ER) | payer OTHER ==
[2018-10-02 12:02] LABS: PLATELET COUNT 248 10^3/uL (150-400)
--- NOTE | 2018-10-02 14:24 | EDPHY ---
H & P Stated Complaint: "waves of chest pain and h/a" on n off x 2 days, pt concerned for htn Time Seen by Provider: 10/02/18 11:30 HPI/ROS: CHIEF COMPLAINT: "I feel waves coming over me" HISTORY OF PRESENT ILLNESS: 87-year-old female history of pacemaker, ascending aortic aneurysm with repair, diabetes, TIA, in the ER via private vehicle complaining of a vague sensation of"waves calming over my head and my chest". She describes fullness in her chest and her head since yesterday evening. Not described as pain. She believes it is secondary to transient hypertension. Checked her blood pressure last evening systolic of 180 when she was symptomatic. Currently feeling similar "waves". She denies dyspnea, back pain , the gait instability, slurred speech, visual disturbance, fever, chills, flu- like symptoms. PRIMARY CARE PROVIDER:Ace Valdes REVIEW OF SYSTEMS: 10 systems reviewed and negative with the exception of the elements mentioned in the history of present illness PAST MEDICAL & SURGICAL HISTORY: Did ascending aortic aneurysm. Pacemaker. Diabetes. TIA. Hypercholesterolemia. SOCIAL HISTORY: Nonsmoker PHYSICAL EXAM (Prior to examination, patient consented to physical exam, hands were washed and my usual and customary physical exam procedures followed) 1) GENERAL: Well-developed, well-nourished, alert and oriented. Appears to be in no acute distress. 2) HEAD: Normocephalic, atraumatic 3) HEENT: Pupils equal, round, reactive to light bilaterally. Sclera anicteric. 4) NECK: Full range of motion, no meningeal signs. No bruit 5) LUNGS: Clear auscultation bilaterally, no wheezes, no rhonchi, no retractions. 6) HEART: Regular rate and rhythm, no murmur, no heave, no gallop. 7) ABDOMEN: No guarding, no rebound, no focal tenderness, negative McBurney's, negative Aguilera's, negative Rovsing's, negative peritoneal sign, 8) MUSCULOSKELETAL: Moving all extremities, no focal areas of tenderness, no obvious trauma. No peripheral edema or discoloration. Negative Homans no palpable cord 9) BACK: No CVA tenderness, no midline vertebral tenderness, no fluctuance, no step-off, no obvious trauma, no visual or palpable abnormality. 10) SKIN: No rash, no petechiae. 11) Psychiatric: Patient is oriented X 3, there is no agitation. 12) NEURO: Awake, alert, and oriented to person, place and time. Answers questions appropriately. There were no obvious focal neurologic abnormalities. No cerebellar dysfunction. Cranial nerves 2 through to 12 intact. Normal steady gait. Upper and lower extremities bilaterally with strength 5 / 5, reflexes 2+. DIFFERENTIAL DIAGNOSIS: In no particular order, including but not limited to myocardial ischemia, pulmonary embolus, pleural inflammation and pulmonary infectious causes. - Medical/Surgical History Hx Asthma: No Hx Chronic Respiratory Disease: No Hx Diabetes: No Hx Cardiac Disease: Yes Hx Renal Disease: No Hx Cirrhosis: No Hx Alcoholism: No Hx HIV/AIDS: No Hx Splenectomy or Spleen Trauma: No Other PMH: AAA w/ repair, HTN, pacemaker - Social History Smoking Status: Never smoked Constitutional: Initial Vital Signs Temperature (C) 36.5 C 10/02/18 11:17 Heart Rate 77 10/02/18 11:17 Respiratory Rate 18 10/02/18 11:17 Blood Pressure 143/82 H 10/02/18 11:17 O2 Sat (%) 97 10/02/18 11:17 O2 Delivery Mode Room Air Allergies/Adverse Reactions: No Known Allergies Allergy (Verified 10/02/18 12:27) Home Medications: Medication Instructions Recorded Aspirin [Aspirin 81mg (*)] 81 mg PO DAILY 03/06/14 Cholecalciferol Vit D3 [Vitamin D3 1,000 units PO DAILY 03/06/14 (*)] Herbals/Supplements -Info Only 1 tab PO DAILY 03/06/14 [place]-3 Fatty Acids [Fish Oil 1000 1,000 mg PO DAILY18 12/04/16 mg (*)] amLODIPine BESYLATE [Norvasc 5 mg 5 mg PO DAILY 12/04/16 (*)] Medical Decision Making - Diagnostics Imaging Results: Imaging Impressions Chest X-Ray 10/02/18 11:39 Impression: 1. Clear lungs. No edema or acute process. 2. Stigmata of cardiovascular disease unchanged since November 2016. Head CT 10/02/18 13:43 Impression: 1. No acute intracranial hemorrhage or evidence of ischemia. 2. 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 Findings discussed with Emergency Department physician, Niall Chua at 14:13. Images reviewed myself ED Course/Re-evaluation: 2:30 p.m.: Patient was re-evaluated with serial examinations. She remains an NIH stroke score 0. She has no complaints of pain or discomfort. I discussed her diagnostic studies. I recommended hospital admission for cardiac rule out and further evaluation. She has been informed the limitations of initial diagnostic studies including negative troponin. States that she would like to be discharged home, states that she is feeling improvement upon learning that her laboratory studies and diagnostic studies are normal. Discussed limitations of the studies with her and she has verbalized understanding and acceptance. I believe her to have decision-making capacity. She continues to decline admission. At a minimum, have recommend follow up with her primary care provider tomorrow. In the meantime should she develop headache, chest pain , or any other symptoms needs to seek immediate medical attention. Care of patient under supervision of secondary supervising physician Dr Umair Dodson with whom I discussed case. - Data Points Laboratory Results: Laboratory Results 10/02/18 11:51 10/02/18 11:51 10/02/18 10/02/18 10/02/18 13:44 11:57 11:51 WBC RBC Hgb Hct MCV MCH MCHC RDW Plt Count MPV Neut % (Auto) Lymph % (Auto) [place] % (Auto) Eos % (Auto) Baso % (Auto) Nucleat RBC Rel Count Absolute Neuts (auto) Absolute Lymphs (auto) Absolute Monos (auto) Absolute Eos (auto) Absolute Basos (auto) Absolute Nucleated RBC Immature Gran % Immature Gran # Sodium Potassium Chloride Carbon Dioxide Anion Gap BUN Creatinine Estimated GFR Glucose Calcium POC Troponin I 0.00 ng/mL ng/mL (0.00-0.08) Urine Color YELLOW Urine Appearance CLEAR Urine pH 5.0 (5.0-7.5) Ur Specific [place] 1.008 (1.002-1.030) Urine Protein NEGATIVE (NEGATIVE) Urine Ketones NEGATIVE (NEGATIVE) Urine Blood NEGATIVE (NEGATIVE) Urine Nitrate NEGATIVE (NEGATIVE) Urine Bilirubin NEGATIVE (NEGATIVE) Urine Urobilinogen NEGATIVE EU EU (0.2-1.0) Ur Leukocyte Esterase NEGATIVE (NEGATIVE) Urine RBC NONE SEEN /hpf /hpf (0-3) Urine WBC 1-3 /hpf /hpf (0-3) Ur Epithelial Cells TRACE /lpf /lpf (NONE-1+) Urine Mucus TRACE /lpf /lpf (NONE-1+) Urine Glucose NEGATIVE (NEGATIVE) Nasal Influenza A PCR NEGATIVE FOR FLU A (NEGATIVE) Nasal Influenza B PCR NEGATIVE FOR FLU B (NEGATIVE) 10/02/18 10/02/18 11:51 11:51 WBC 6.17 10^3/uL 10^3/uL (3.80-9.50) RBC 4.41 10^6/uL 10^6/uL (4.18-5.33) Hgb 14.0 g/dL g/dL (12.6-16.3) Hct 41.7 % % (38.0-47.0) MCV 94.6 fL fL (81.5-99.8) MCH 31.7 pg pg (27.9-34.1) MCHC 33.6 g/dL g/dL (32.4-36.7) RDW 13.2 % % (11.5-15.2) Plt Count 248 10^3/uL 10^3/uL (150-400) MPV 8.8 fL fL (8.7-11.7) Neut % (Auto) 56.6 % % (39.3-74.2) Lymph % (Auto) 30.3 % % (15.0-45.0) [place] % (Auto) 11.2 % % (4.5-13.0) Eos % (Auto) 1.1 % % (0.6-7.6) Baso % (Auto) 0.5 % % (0.3-1.7) Nucleat RBC Rel Count 0.0 % % (0.0-0.2) Absolute Neuts (auto) 3.49 10^3/uL 10^3/uL (1.70-6.50) Absolute Lymphs (auto) 1.87 10^3/uL 10^3/uL (1.00-3.00) Absolute Monos (auto) 0.69 10^3/uL 10^3/uL (0.30-0.80) Absolute Eos (auto) 0.07 10^3/uL 10^3/uL (0.03-0.40) Absolute Basos (auto) 0.03 10^3/uL 10^3/uL (0.02-0.10) Absolute Nucleated RBC 0.00 10^3/uL 10^3/uL (0-0.01) Immature Gran % 0.3 % % (0.0-1.1) Immature Gran # 0.02 10^3/uL 10^3/uL (0.00-0.10) Sodium 139 mEq/L mEq/L (135-145) Potassium 3.8 mEq/L mEq/L (3.5-5.2) Chloride 110 mEq/L mEq/L (97-110) Carbon Dioxide 22 mEq/l mEq/l (22-31) Anion Gap 7 mEq/L mEq/L (6-14) BUN 11 mg/dL mg/dL (7-23) Creatinine 0.7 mg/dL mg/dL (0.6-1.0) Estimated GFR > 60 Glucose 99 mg/dL mg/dL (70-100) Calcium 9.6 mg/dL mg/dL (8.5-10.4) POC Troponin I Urine Color Urine Appearance Urine pH Ur Specific [place] Urine Protein Urine Ketones Urine Blood Urine Nitrate Urine Bilirubin Urine Urobilinogen Ur Leukocyte Esterase Urine RBC Urine WBC Ur Epithelial Cells Urine Mucus Urine Glucose Nasal Influenza A PCR Nasal Influenza B PCR Point of Care Test Results: Chemistry 10/02/18 11:57 POC Troponin I 0.00 ng/mL ng/mL (0.00-0.08) Departure - Departure Disposition: Home, Routine, Self-Care Clinical Impression: Fullness in head Condition: Good Instructions: Acute Headache (ED) Additional Instructions: PLEASE FOLLOW UP WITH YOUR DOCTOR WITHIN 24 HOURS TO BE RECHECKED. RETURN TO THE ED IMMEDIATELY IF YOUR HEADACHE WORSENS, IF YOU DEVELOP A FEVER, NECK PAIN OR NECK STIFFNESS, OR IF YOU BECOME CONFUSED OR ABNORMALLY DROWSY. Referrals: Ace Valdes MD [Primary Care Provider] - 1-2 days without fail NIH Stroke Scale Date of Exam: 10/02/18 Time of Exam: 11:35 Level of Consciousness: Alert LOC Questions: Answers Both LOC Commands: Performs Both Correctly Best Gaze: Normal Visual: No Visual Loss Facial Palsy: Normal Motor Arm-Left: No Drift Motor Arm-Right: No Drift Motor Leg-Left: No Drift Motor Leg-Right: No Drift Limb Ataxis: Absent Sensory: Normal Best Language: No Aphasia Dysarthria: Normal Extinction and Inattention (Neglect): No Abnormality NIH Scale Score: 0
[2018-10-02 15:01] VITALS: BP 121/83
--- NOTE | 2018-10-09 14:21 | CPEKG ---
Test Reason : OPEN Blood Pressure : / mmHG Vent. Rate : 084 BPM Atrial Rate : 084 BPM P-R Int : 168 ms QRS Dur : 118 ms QT Int : 399 ms P-R-T Axes : 002 067 -08 degrees QTc Int : 472 ms Sinus rhythm Nonspecific intraventricular conduction delay Minimal ST depression, anterior leads Confirmed by Xiang Watson ([id number]) on 10/09/2018 2:21:18 PM Referred By: Confirmed By:Xiang Watson
== END 2018-10-02 15:01 | disposition home or self-care (01) ==
DX: R51 Headache (principal); I10 Essential (primary) hypertension; E11.9 Type 2 diabetes mellitus without complications; E78.00 Pure hypercholesterolemia, unspecified; Z95.0 Presence of cardiac pacemaker
CPT/HCPCS: 84484-ER